=== PATIENT | male | born 1970 | race Caucasian/White ===

== ENCOUNTER 2020-11-25 17:54 | Inpatient (IN) | payer MEDICAID ==
[~2020-11-25] VITALS: Ht 175.3 cm; Wt 47.2 kg
[2020-11-25] MEDS ORDERED: SODIUM CHLORIDE FLUSH 10ML SYR IVF ONE (18:30)
[2020-11-25 18:38] LABS: MEAN CORPUSCULAR HEMOGLOBIN 29.2 pg (27.5-34.5); MEAN CORPUSCULAR HGB CONC 33.4 g/dL (33.2-36.2); MEAN PLATELET VOLUME 6.7 fL (7.4-10.4); PLATELET COUNT 392 x10^3/uL (130-400); RED BLOOD COUNT 4.52 x10^6/uL (4.38-5.82); RED CELL DISTRIBUTION WIDTH 13.9 % (9.4-14.8)
[2020-11-25 18:43] LABS: ALANINE AMINOTRANSFERASE 46 U/L (12-78); ALBUMIN 2.1 g/dL (3.4-5.0); CALCIUM 8.8 mg/dL (8.5-10.1); CHLORIDE 98 mmol/L (98-107); CREATININE 0.89 mg/dL (0.7-1.3)
[2020-11-25 18:54] LABS: ALKALINE PHOSPHATASE 130 U/L (45-117); ANION GAP 8 mmol/L (5-15); TOTAL PROTEIN 6.7 g/dL (6.4-8.2); TROPONIN I < 0.015 ng/mL (0.000-0.045)
[2020-11-25 18:55] LABS: MD YES
[2020-11-25 19:03] LABS: BAND#(MANUAL) 3.03 x10^3/uL; BANDS%(MANUAL) 10 % (0-7); LYMPH#(MANUAL) 1.21 x10^3/uL (1-3.4); LYMPHS% (MANUAL) 4 % (22-44); MONOS#(MANUAL) 1.52 x10^3/uL (0.3-2.7); MONOS% (MANUAL) 5 % (2-9); SEG#(MANUAL) 24.54 x10^3/uL (1.8-6.8); SEGS% (MANUAL) 81 % (42-75)
[2020-11-25 19:04] LABS: <RBC MORPHOLOGY> NORMAL
--- NOTE | 2020-11-25 19:04 | NUR ---
Covering primary, pt back from CT. Pt wbc noted to be 30k. To draw bc, lactate. On monitor, pulse ox.
[2020-11-25 19:05] LABS: <PLATELET ESTIMATE> ADEQUATE; <PLT MORPHOLOGY> NORMAL PLT MORPH; TOXIC GRAN 1+
--- NOTE | 2020-11-25 19:11 | NUR ---
Lab here drawing x2 sets BC and lactate, requested urine from pt, IVF hung. Placed on 2l o2 for sats 89-90%. Waiting for further orders, will continue to monitor. Remains sinus tach rate 205, no ectopy.
--- NOTE | 2020-11-25 19:15 | NUR ---
Consult with PAC and ERP, ERP to come evaluate pt.
[2020-11-25] MEDS ORDERED: CEFTRIAXONE PMX 1GM/50ML 50 ML ONE (19:27)
[2020-11-25] MEDS ORDERED: CEFTRIAXONE PMX 1GM/50ML 50 ML IV ONE (19:30)
[2020-11-25] MEDS ORDERED: AZITHROMYCIN 500 MG in SODIUM CHLORIDE 0.9% 250 ML IV ONE (19:30)
[2020-11-25] MEDS ORDERED: SODIUM CHLORIDE 0.9% 1,000ML IVBOLUS ONE (19:30)
--- NOTE | 2020-11-25 19:34 | NUR ---
Ambassador in [place] who has been helping this man is Kevin Bucio, .
[2020-11-25] MEDS ORDERED: SODIUM CHLORIDE 0.9% 1,000 ML IV ONE (20:00)
[2020-11-25] MEDS ORDERED: SODIUM CHLORIDE FLUSH 10ML SYR IVF PRN (20:00)
[2020-11-25 21:21] VITALS: BP 122/81
[2020-11-25] MEDS: CEFTRIAXONE PMX 1GM/50ML 50 ML IVPB SCH (21:30)
[2020-11-25] MEDS ORDERED: ONDANSETRON 2MG/ML, 2ML IVPush PRN (21:30)
[2020-11-25] MEDS ORDERED: PHARMACY MAY ADJ FOR RENAL FX MC PRN (21:30)
[2020-11-25] MEDS ORDERED: HYDROcodone/APAP 5/325 TABLET PO PRN (21:30)
[2020-11-25] MEDS ORDERED: hydrALAzine 20 MG/ML, 1ML IVPush PRN (21:30)
[2020-11-25] MEDS ORDERED: GUAIFENESIN/DM 200-20MG, 10ML UDC PO PRN (21:30)
[2020-11-25] MEDS: POTASSIUM CHLORIDE 20 MEQ in LACTATED RINGERS 1,000 ML IV SCH (22:49)
[2020-11-25] MEDS: AZITHROMYCIN 500 MG in SODIUM CHLORIDE 0.9% 250 ML IV SCH (22:51)
[2020-11-25] MEDS: ACETAMINOPHEN 325 MG TABLET PO PRN (22:54)
[2020-11-25] MEDS: HEPARIN 5,000 UNITS/ML, 1ML SQ SCH (22:54)
[2020-11-25 23:59] LABS: MICROSCOPIC INDICATED
[2020-11-26 04:00] VITALS: BP 100/60
[2020-11-26] MEDS: HEPARIN 5,000 UNITS/ML, 1ML SQ SCH ×2 (05:16→13:41)
[2020-11-26 06:00] LABS: MEAN CORPUSCULAR HEMOGLOBIN 28.7 pg (27.5-34.5); MEAN CORPUSCULAR HGB CONC 32.4 g/dL (33.2-36.2); MEAN PLATELET VOLUME 6.4 fL (7.4-10.4); PLATELET COUNT 337 x10^3/uL (130-400); RED BLOOD COUNT 4.11 x10^6/uL (4.38-5.82); RED CELL DISTRIBUTION WIDTH 14.3 % (9.4-14.8)
[2020-11-26 06:10] LABS: ALBUMIN 1.5 g/dL (3.4-5.0); ANION GAP 6 mmol/L (5-15); CALCIUM 8.4 mg/dL (8.5-10.1); CHLORIDE 105 mmol/L (98-107)
[2020-11-26 06:14] LABS: ALANINE AMINOTRANSFERASE 39 U/L (12-78); ALKALINE PHOSPHATASE 114 U/L (45-117); BILIRUBIN,TOTAL 0.5 mg/dL (0.2-1.0); TOTAL PROTEIN 5.4 g/dL (6.4-8.2)
[2020-11-26 06:53] LABS: MD YES
[2020-11-26 06:56] LABS: BAND#(MANUAL) 0.26 x10^3/uL; BANDS%(MANUAL) 1 % (0-7); BASOS#(MANUAL) 0.26 x10^3/uL (0-0.1); BASOS% (MANUAL) 1 % (0-1); EOS#(MANUAL) 0.51 x10^3/uL (0.0-0.4); EOS% (MANUAL) 2 % (1-7); LYMPH#(MANUAL) 2.05 x10^3/uL (1-3.4); LYMPHS% (MANUAL) 8 % (22-44); MONOS#(MANUAL) 1.54 x10^3/uL (0.3-2.7); MONOS% (MANUAL) 6 % (2-9); SEG#(MANUAL) 20.99 x10^3/uL (1.8-6.8); SEGS% (MANUAL) 82 % (42-75)
[2020-11-26 06:57] LABS: <PLATELET ESTIMATE> ADEQUATE; <PLT MORPHOLOGY> NORMAL PLT MORPH; <RBC MORPHOLOGY> NORMAL
[2020-11-26 08:26] VITALS: BP 95/58
[2020-11-26] MEDS: POTASSIUM CHLORIDE 20 MEQ in LACTATED RINGERS 1,000 ML IV SCH ×2 (09:06→20:10)
[2020-11-26 09:27] LABS: HCT (SEDRATE) 36.4 % (39.2-51.8)
[2020-11-26] MEDS ORDERED: VANCOMYCIN PER PHARMACY MC PRN (09:30)
[2020-11-26] MEDS ORDERED: VANCOMYCIN PMX 1GM/200ML 200 ML IVPB ONE (11:00)
[2020-11-26] MEDS ORDERED: PHARMACOKINETIC MONITORING MC PRN (11:00)
[2020-11-26 13:09] VITALS: BP 94/54
[2020-11-26] MEDS ORDERED: ALBUMIN HUMAN 25% 100 ML IV PRN (15:30)
[2020-11-26] MEDS ORDERED: SODIUM CHLORIDE 0.9%, 500ML IVBOLUS ONE (16:30)
[2020-11-26] MEDS ORDERED: ALBUMIN HUMAN 25% 100 ML IV ONE (17:30)
[2020-11-26 20:06] VITALS: BP 101/63
[2020-11-26] MEDS: CEFTRIAXONE PMX 1GM/50ML 50 ML IVPB SCH (22:03)
[2020-11-26] MEDS: ACETAMINOPHEN 325 MG TABLET PO PRN (22:07)
[2020-11-26 22:16] VITALS: BP 105/57
[2020-11-26] MEDS ORDERED: VANCOMYCIN 800 MG in SODIUM CHLORIDE 0.9% 100 ML IV SCH (23:00)
[2020-11-26] MEDS: AZITHROMYCIN 500 MG in SODIUM CHLORIDE 0.9% 250 ML IV SCH (23:31)
[2020-11-27 01:05] VITALS: BP 114/73
[2020-11-27 05:20] LABS: BASOPHILS % (AUTO) 0 % (0-1); EOSINOPHILS % (AUTO) 2 % (1-7); LYMPHOCYTES % (AUTO) 14 % (22-44); MEAN CORPUSCULAR HEMOGLOBIN 28.9 pg (27.5-34.5); MEAN CORPUSCULAR HGB CONC 32.5 g/dL (33.2-36.2); MEAN PLATELET VOLUME 6.7 fL (7.4-10.4); MONOCYTES % (AUTO) 7 % (2-9); NEUTROPHILS % (AUTO) 77 % (42-75); PLATELET COUNT 413 x10^3/uL (130-400); RED CELL DISTRIBUTION WIDTH 14.4 % (9.4-14.8)
[2020-11-27] MEDS: POTASSIUM CHLORIDE 20 MEQ in LACTATED RINGERS 1,000 ML IV SCH ×2 (05:22→16:08)
[2020-11-27 05:33] LABS: ALBUMIN 1.7 g/dL (3.4-5.0); ANION GAP 5 mmol/L (5-15); CHLORIDE 108 mmol/L (98-107)
[2020-11-27 05:37] LABS: ALANINE AMINOTRANSFERASE 22 U/L (12-78); ALKALINE PHOSPHATASE 84 U/L (45-117); BILIRUBIN,TOTAL 0.2 mg/dL (0.2-1.0); CREATININE 0.66 mg/dL (0.7-1.3)
[2020-11-27 05:55] LABS: MD SCAN
[2020-11-27 09:07] VITALS: BP 124/77
[2020-11-27] MEDS: CEFTRIAXONE PMX 2GM/50ML 50 ML IVPB SCH (09:09)
[2020-11-27] MEDS ORDERED: VANCOMYCIN 1 GM/200 ML IV SCH (12:00)
[2020-11-27 13:25] VITALS: BP 147/87
[2020-11-28] MEDS: POTASSIUM CHLORIDE 20 MEQ in LACTATED RINGERS 1,000 ML IV SCH (01:52)
[2020-11-28 04:58] LABS: BASOPHILS % (AUTO) 1 % (0-1); EOSINOPHILS % (AUTO) 3 % (1-7); LYMPHOCYTES % (AUTO) 16 % (22-44); MEAN PLATELET VOLUME 6.4 fL (7.4-10.4); MONOCYTES % (AUTO) 5 % (2-9); NEUTROPHILS % (AUTO) 75 % (42-75); PLATELET COUNT 521 x10^3/uL (130-400); RED BLOOD COUNT 4.56 x10^6/uL (4.38-5.82); RED CELL DISTRIBUTION WIDTH 13.8 % (9.4-14.8)
[2020-11-28 05:11] LABS: CHLORIDE 105 mmol/L (98-107)
[2020-11-28 05:17] LABS: ANION GAP 5 mmol/L (5-15); CALCIUM 8.5 mg/dL (8.5-10.1); CREATININE 0.68 mg/dL (0.7-1.3)
[2020-11-28 05:43] LABS: MD SCAN
[2020-11-28] MEDS: CEFTRIAXONE PMX 2GM/50ML 50 ML IVPB SCH (09:09)
[2020-11-28] MEDS ORDERED: GUAI5SYR PO (09:56)
[2020-11-28] MEDS ORDERED: LEVO750T6 PO (09:56)
== END 2020-11-28 12:06 | disposition home or self-care (01) | DRG 720 ==
LOC: ED 18:24 → EDIP 19:48 → UNDOADMIN 19:48 → EDIP 21:01 → 4WST 21:01 → EDIP 21:28 → 4WST 21:28 → DCLOUNGE 11-28 11:56
PROVIDERS: ADMIT Internal Medicine; ATTEND Internal Medicine
DX: A41.9 Sepsis, unspecified organism (principal); J96.01 Acute respiratory failure with hypoxia; E43 Unspecified severe protein-calorie malnutrition; J13 Pneumonia due to Streptococcus pneumoniae; Z20.822 Contact with and (suspected) exposure to COVID-19; Z59.0 Homelessness; Z85.89 Personal history of malignant neoplasm of other organs and systems; Z68.1 Body mass index [BMI] 19.9 or less, adult
CPT/HCPCS: 36415; 71260; 80048; 80053; 81001; 83036; 83605; 83735; 84100; 84145; 84443; 84484; 85025; 85379; 85651; 86140; 87040; 87077; 87181; 93005; 93306; 96374; 96375; 99285; G0378; J0456; J0696; J1644; J3370; J3480; P9047; J7030; J7040; J7050; J7120; U0003